=== PATIENT | female | born 1980 | race Hispanic/Latino ===

== ENCOUNTER → 2019-04-16 | Outpatient (CLI) | payer BC ==
--- NOTE | 2019-04-16 10:08 | Diagnostic Imaging Report ---
Abdominal ultrasound Clinical History: Abdominal pain Discussion: Sonographic evaluation of the the abdomen is performed. The liver has normal size and measures 14.2 cm in length. The liver echotexture is normal, without focal mass. There is no intra or extrahepatic biliary dilatation. The common bile duct measures 3 mm. The gallbladder has normal appearance, without wall thickening, stones, or pericholecystic fluid. The main portal vein diameter is normal, measuring 14 mm. The pancreatic head, body, and proximal tail demonstrate no abnormality. There is no ascites. The right and the left kidney measure 11.8 and 12.1 cm in length respectively and are normal in size. There is no renal mass, hydronephrosis, or shadowing renal calculus. The spleen measures 9.8 cm in length and is normal in echotexture. Segments of the inferior vena cava and aorta visualized demonstrate no abnormality. Impression: Normal abdominal ultrasound. Signed by: Dr. Antonio Chacon MD on 04/16/2019 10:04 AM
== END ==
LOC: US 09:09
PROVIDERS: ATTEND Family Medicine
DX: R10.9 Unspecified abdominal pain (principal)
CPT/HCPCS: 76700